=== PATIENT | female | born 1960 | race Caucasian/White ===

== ENCOUNTER → 2017-09-23 | Outpatient (CLI) | payer BC ==
[~2017-09-23] MED LIST: LISINOPRIL10 MG PO; METFORMIN500 MG PO
== END ==
LOC: MC.RAD 14:56
DX: Z12.31 Encounter for screening mammogram for malignant neoplasm of breast (principal)

== ENCOUNTER → 2018-10-19 | Outpatient (CLI) | payer BC | LOC: MC.RAD 16:07 | DX: Z12.31 Encounter for screening mammogram for malignant neoplasm of breast (principal) ==

== ENCOUNTER → 2019-10-30 | Outpatient (CLI) | payer BC | LOC: MC.RAD 15:52 | DX: Z12.31 Encounter for screening mammogram for malignant neoplasm of breast (principal) ==

== ENCOUNTER → 2020-11-04 | Outpatient (CLI) | payer BC | LOC: MC.RAD 15:57 | DX: Z12.31 Encounter for screening mammogram for malignant neoplasm of breast (principal) ==

== ENCOUNTER → 2021-12-08 | Outpatient (CLI) | payer BC | LOC: MC.RAD 16:30 | DX: Z12.31 Encounter for screening mammogram for malignant neoplasm of breast (principal) ==

== ENCOUNTER 2021-12-24 07:05 | Day surgery (SDC) | payer BC ==
[~2021-12-24] VITALS: Ht 172.7 cm; Wt 97.7 kg
[2021-12-24] MEDS ORDERED: TRULICITY3 MG/0.5 M SQ (07:16)
[2021-12-24] MEDS ORDERED: BASAGLAR K100 UNIT/1 SQ (07:16)
[2021-12-24] MEDS ORDERED: ZOCOR 40MG40 MG PO (07:17)
[2021-12-24] MEDS ORDERED: ZESTRIL 10MG10 MG PO (07:17)
[2021-12-24] MEDS ORDERED: GLUCOPHAGE1000 MG PO (07:17)
[2021-12-24 07:43] VITALS: BP 129/70; PULSE 72; TEMP 97.5
[2021-12-24 09:40] VITALS: BP 117/80; PULSE 82; TEMP 98
[2021-12-24 09:55] VITALS: BP 113/70; PULSE 64
[2021-12-24 10:10] VITALS: BP 116/42; PULSE 70
--- NOTE | 2021-12-24 10:30 | NUR ---
0940 IN TO SPEAK WITH PRIOR TO PT RETURN TO ROOM. PT RETURNED TO [facility] VIA CART, TRANSFERED TO CHAIR WITH 2 RN ASSIST. ALERT AND ORIENTED. MONITORS ATTACHED, INTERVALS AND ALARMS SET. WARM BLANKETS, JUICE AND MUFFIN PROVIDED. PT DENIES PAIN OR NAUSEA. PT GIVEN CHOICE, PER DR. UP, TO BE DISCHARGED WITHOUT SPEAKING WITH DR. UP AND TO CALL FOR ANY QUESTIONS OR CONCERNS, PT REQUEST TO BE DISCHARGED WITHOUT SPEAKING WITH 0921 PT TOLERATING FOOD AND DRINK WELL. VSS. BG 264, REPORTED TO DR. UP. PT TO TAKE MEDICATIONS ONCE AT HOME. 1010 REVIEWED DISCHARGE INSTRUCTIONS AND EDUCATION PACKET. ANSWERED ALL QUESTIONS TO PT AND HUSBANDS SATISFACTION. IV DISCONTINUED WITHOUT COMPLICATION. PT ALLOWED TO DRESS. 1040 PT TRANSFERED VIA WHEEL CHAIR TO PERSONAL VEHICLE TO BE DRIVEN HOME BY .
== END 2021-12-24 10:40 | disposition home or self-care (01) ==
LOC: SDCO 07:05
DX: D12.8 Benign neoplasm of rectum (principal); D12.3 Benign neoplasm of transverse colon; R19.5 Other fecal abnormalities; K57.30 Diverticulosis of large intestine without perforation or abscess without bleeding
CPT/HCPCS: J2704

== ENCOUNTER → 2023-01-25 | Outpatient (CLI) | payer BC ==
[~2023-01-25] MED LIST changes: +BASAGLAR K100 UNIT/1 SQ; +GLUCOPHAGE1000 MG PO; +TRULICITY3 MG/0.5 M SQ; +ZESTRIL 10MG10 MG PO; +ZOCOR 40MG40 MG PO
== END ==
LOC: MC.RAD 16:42
DX: Z12.31 Encounter for screening mammogram for malignant neoplasm of breast (principal)

== ENCOUNTER → 2024-02-09 | Outpatient (CLI) | payer MEDICARE, BC | LOC: MC.RAD 08:47 | DX: Z12.31 Encounter for screening mammogram for malignant neoplasm of breast (principal) ==